=== PATIENT | male | born 1955 | race African-American/Black ===

== ENCOUNTER 2020-01-01 12:00 | Outpatient (CLI) | payer OTHER, MEDICAID, SELFPAY ==
--- NOTE | 2020-01-08 11:57 | NUR ---
Patient called [facility] for his COVID-19 "Negative" PCR-VAISHALI results. He was instructed to follow preventive measures ([place] [facility]). Patient verbalizes understanding.
== END 2020-01-01 12:30 | disposition home or self-care (01) ==
LOC: SLB 12:00 → EDSTATUS 01-08 11:15
PROVIDERS: ATTEND Colon & Rectal Surgery
DX: Z01.812 Encounter for preprocedural laboratory examination (principal); Z20.828 Contact with and (suspected) exposure to other viral communicable diseases; K40.91 Unilateral inguinal hernia, without obstruction or gangrene, recurrent
CPT/HCPCS: U0003-CS